=== PATIENT | female | born 1995 | race Caucasian/White ===

== ENCOUNTER → 2019-05-26 | Outpatient (CLI) | payer BC, OTHER ==
[2019-05-26 18:01] LABS: FREE T3 3.56 pg/mL (2.77-5.27); FREE T4 (FREE THYROXINE) 0.9 ng/dL (0.78-2.19)
[2019-05-26 18:15] LABS: THYROID STIMULATING HORMONE 2.57 uIU/mL (0.47-4.68)
== END ==
LOC: LAB 16:36
PROVIDERS: ATTEND Anesthesiology
DX: Z01.812 Encounter for preprocedural laboratory examination (principal)
CPT/HCPCS: 36415; 84436; 84439; 84443; 84481